=== PATIENT | male | born 1940 | race Caucasian/White ===

== ENCOUNTER 2018-09-18 22:58 | Observation (INO) ==
--- NOTE | 2018-09-18 23:15 | Emergency Department Note ---
Disposition Clinical Impression: Shoulder fracture, left Qualifiers: Encounter type: initial encounter Fracture type: closed Qualified Code(s): S42.92XA - Fracture of left shoulder girdle, part unspecified, initial encounter for closed fracture Fall Qualifiers: Encounter type: initial encounter Qualified Code(s): W19.XXXA - Unspecified fall, initial encounter Disposition: Admitted As Inpatient Condition: Fair Fall HPI - General Stated Complaint: Fall Lt Shoulder Time Seen by Provider: 09/18/18 23:00 Source: patient, EMS Nursing Notes Reviewed: Yes Vital Signs Reviewed: Yes - History of Present Illness HPI Narrative: 78-year-old male presents from home for evaluation of fall. This occurred just prior to arrival. Patient describes a mechanical fall. His left foot is bandaged; followed by Dr. Davis. He has been using a knee walker scooter. He says the corner of a throat round caught one of the wheels causing him to tip over striking his left shoulder and head. No loss of consciousness. He has pain at this time of his left before meals joint and left proximal humerus. He also notes left knee pain. No other concerns. Patient notes that he was looking forward to nearly being healed with his left foot surgery. He was at home with his who does not drive. He is unable to drive because of his left foot surgery. He is emotional concerns that he is again injured disrupting both he and his 's daily life. Antiplatelet: None Anticoagulant: None ROS: Positive: As above Negative: Fever, chills, nausea, vomiting, chest pains, palpitations, left upper extremity numbness or tingling, hip pain, back pain. - Related Data Home Medications Medication Instructions Recorded Confirmed Aspirin [Adult Aspirin Regimen] 81 mg PO DAILY 02/10/18 09/19/18 Lisinopril [Zestril] 40 mg PO DAILY 02/10/18 09/19/18 Metoprolol [Lopressor] 25 mg PO BID 02/10/18 09/19/18 Pantoprazole Sodium [Protonix] 20 mg PO DAILY 02/10/18 09/19/18 Simvastatin [Zocor] 40 mg PO HS 02/10/18 09/19/18 Cholecalciferol (Vitamin D3) 1 cap PO QWEEK 07/21/18 09/19/18 [Vitamin D3] Tramadol HCl [Ultram] 1 tab PO PRN PRN 07/21/18 07/21/18 Previous Rx's Medication Instructions Recorded HYDROcodone/Acet 5/325 mg [[place] 1 tab PO Q4H PRN 4 Days #24 tab 07/21/18 5-325 mg] Ondansetron ODT [Zofran ODT] 4 mg SL Q8HR PRN #15 tab.rapdis 07/21/18 Rivaroxaban [Xarelto] 10 mg PO DAILY #20 tablet 07/21/18 Allergies Allergy/AdvReac Type Severity Reaction Status Date / Time Iodinated Contrast- Oral and Allergy Hives Verified 07/20/18 15:30 IV Dye [Iodinated Contrast Media - IV Dye] ofloxacin [From Floxin] Allergy Rash Verified 07/20/18 15:31 fluconazole [From Diflucan] AdvReac Hives Verified 07/20/18 15:30 All systems ED: reviewed and negative except as stated. Review of Systems: As Per HPI Fall PMH - Past Medical History Medical history: Reports: cancer, hyperlipidemia, hypertension, osteoporosis Psychiatric history: Reports: no psych history - Social History Smoking Status: Never smoker Alcohol use: Reports: none Drug use: Reports: none Physical Exam Primary survey: Airway: Intact; patient is speaking in complete sentences and maintaining secretions. Breathing: No chest wall tenderness. Bilateral breath sounds equal. Circulation: Bilateral radial pulses 2/4. Right posterior tibial pulses 2/4, left posterior tibial pulse obscured by bulky bandaging of his left foot and leg. No hemorrhaging. Disability: GCS 15. Exposure: No abrasions, lacerations, ecchymosis, or hematomas on the patient's scalp or face, trunk, extremities. Secondary survey Vital Signs Reviewed General: Patient is alert, oriented, and in no acute distress. HEENT: No facial asymmetry. Head is normocephalic and atraumatic. PERRLA, EOMI. Nasal turbinates moist and pink without epistaxis. Oral mucosa moist. Dentition intact. Cardiovascular: Heart regular rate and rhythm without clicks, rubs, gallops, or murmurs. No JVD. PMI nondisplaced. Respiratory: Symmetric chest rise with good respiratory effort. Bilateral breath sounds are clear without wheezing, crackles, or rhonchi. Abdomen: Bowel sounds present normoactive x-4 quadrants. Abdomen is soft, nondistended, and nontender. No organomegaly noted. Musculoskeletal: Spontaneously moving all extremities. Pain to palpation of left acromioclavicular joint. Pain to palpation of left proximal humerus at the surgical neck with overlying soft tissue swelling. No midline spinous process tenderness of cervical, thoracic, lumbar spines. Neuro: Sensation light touch intact. Psych: Patient's affect is appropriate for situation. - General Limitations: no limitations General appearance: alert, in no apparent distress Course Course Narrative: Clinical concern for fracture of left proximal humerus. Will x-ray left shoulder, left elbow, left knee. Also concern about patient's emotional state given the burden of his left foot injury/surgery with the added emotional way of his left upper extremity injury. Patient is currently nonambulatory on his left foot. He now has limited use of his left upper extremity secondary to the shoulder x-ray showing nondisplaced fracture of the greater tuberosity of left humeral head. He is a primary caregiver for his . He has to intracisternal house, both of which require 3 steps to go up. He is concerned that, even of a squat is able to give him assistance getting into his home, he will be unable to exit his home to make a potential appointment this coming Thursday with orthopedics. Additionally, he is a fall risk because he now is unable to steady himself with his left upper extremity. Concerned that he may go home, further injure himself and or his . He is agreeable to admission. I discussed the patient with the admitting hospitalist, Dr. Hernandez. He is agreeable to accept the patient for continued evaluation monitoring. He will consult or so. We discussed in detail the patient's social situation and the need for likely home health and assistance at home. Elbow X-Ray 09/18/18 23:13 IMPRESSION: Nondisplaced fracture through the greater tuberosity of the left humeral head. No other significant finding. D/ / Matthew Garcia MD / Matthew Garcia MD Interpreting Provider: Matthew Garcia MD Knee X-Ray 09/18/18 23:13 IMPRESSION: No acute finding in the left knee. D/ / Matthew Garcia MD / Matthew Garcia MD Interpreting Provider: Matthew Garcia MD Shoulder X-Ray 09/18/18 23:13 IMPRESSION: Nondisplaced fracture through the greater tuberosity of the left humeral head. No other significant finding. D/ / Matthew Garcia MD / Matthew Garcia MD Interpreting Provider: Matthew Garcia MD Vital Signs Temperature 97.8 F 09/18/18 23:04 Pulse Rate 101 09/18/18 23:04 Respiratory Rate 16 09/18/18 23:04 Blood Pressure 165/85 09/18/18 23:04 O2 Sat by Pulse Oximetry 100 09/18/18 23:04 Temperature 98.4 F 09/19/18 12:11 Pulse Rate 82 09/19/18 12:11 Respiratory Rate 15 09/19/18 12:11 Blood Pressure 141/60 09/19/18 12:11 O2 Sat by Pulse Oximetry 96 09/19/18 12:11 Oxygen Delivery Oxygen Delivery Room Air Fall - Lab Data Result diagrams: 09/19/18 05:24 09/19/18 05:24 Attestation Statement - Attestation Attestation: I, Yamil Mcdaniel DO, examined this patient [id number] and my medical decision-making was reviewed with Dr. Igor Robles, Resident Physician. I agree with the documented findings, disposition and treatment plan as described except to the extent set forth below. Please see my progress notes for details.
--- NOTE | 2018-09-19 00:12 | Emergency Department Note ---
Disposition Clinical Impression: Shoulder fracture, left, Fall Disposition: Admitted As Inpatient Condition: Fair Forms: ED Satisfaction Letter Time of Disposition: 01:13 General Adult HPI - General Chief complaint: ED Extremity Injury, Upper Stated complaint: Fall Lt Shoulder Time Seen by Provider: 09/18/18 23:00 Source: patient, EMS Limitations: no limitations - History of Present Illness Pain Scale: 5 - Related Data Home Medications Medication Instructions Recorded Confirmed Aspirin [Adult Aspirin Regimen] 81 mg PO DAILY 02/10/18 07/21/18 Lisinopril [Zestril] 40 mg PO DAILY 02/10/18 07/21/18 Metoprolol [Lopressor] 25 mg PO BID 02/10/18 07/21/18 Pantoprazole Sodium [Protonix] 20 mg PO DAILY 02/10/18 07/21/18 Simvastatin [Zocor] 40 mg PO HS 02/10/18 07/21/18 Cholecalciferol (Vitamin D3) 1 cap PO QWEEK 07/21/18 07/21/18 [Vitamin D3] Tramadol HCl [Ultram] 1 tab PO PRN PRN 07/21/18 07/21/18 Previous Rx's Medication Instructions Recorded HYDROcodone/Acet 5/325 mg [[place] 1 tab PO Q4H PRN 4 Days #24 tab 07/21/18 5-325 mg] Ondansetron ODT [Zofran ODT] 4 mg SL Q8HR PRN #15 tab.rapdis 07/21/18 Rivaroxaban [Xarelto] 10 mg PO DAILY #20 tablet 07/21/18 Allergies Allergy/AdvReac Type Severity Reaction Status Date / Time Iodinated Contrast- Oral and Allergy Hives Verified 07/20/18 15:30 IV Dye [Iodinated Contrast Media - IV Dye] ofloxacin [From Floxin] Allergy Rash Verified 07/20/18 15:31 fluconazole [From Diflucan] AdvReac Hives Verified 07/20/18 15:30 Past Medical History - Past Medical History Medical history: Reports: cancer, hyperlipidemia, hypertension, osteoporosis Psychiatric history: Reports: no psych history - Social History Smoking Status: Never smoker Smokeless Tobacco Status: No Alcohol use: Reports: none Drug use: Reports: none Physical Exam - General Limitations: no limitations General appearance: alert, in no apparent distress Course Vital Signs Temperature 97.8 F 09/18/18 23:04 Pulse Rate 101 09/18/18 23:04 Respiratory Rate 16 09/18/18 23:04 Blood Pressure 165/85 09/18/18 23:04 O2 Sat by Pulse Oximetry 100 09/18/18 23:04 Temperature 97.8 F 09/18/18 23:04 Pulse Rate 101 09/18/18 23:04 Respiratory Rate 16 09/18/18 23:04 Blood Pressure 165/85 09/18/18 23:04 O2 Sat by Pulse Oximetry 100 09/18/18 23:04 Oxygen Delivery Oxygen Delivery Room Air Attestation Statement - Attestation Attestation: I, Yamil Mcdaniel DO, examined this patient [id number] and my medical decision-making was reviewed with Dr. Igor Robles, Resident Physician. I agree with the documented findings, disposition and treatment plan as described except to the extent set forth below. Please see my progress notes for details. 78-year-old male presents to the emergency room for evaluation of a mechanical fall. Patient has a wound on his left foot that is being treated by podiatry with. Patient is on a scooter at home secondary to this injury. He is going to his house on his scooter when the wheel got caught on a rug and twisted sideways. Patient lost his balance and fell to the left side hitting his left shoulder and arm. Denies any closed head injury. Denies any loss of consciousness. His main complaint is left shoulder pain and pain with movement of the left arm. He has no other trauma or injuries outside of pain up his knees. On presentation here patient is alert he is oriented he speaks in full sentences. Head is atraumatic. No signs of facial injury or trauma. Patient has no pain in the cervical thoracic or lumbar spine. Does have tenderness across the left shoulder girdle and into the left proximal humerus. No visible signs of injury to the left elbow or wrist. Right upper extremity is normal. Sensation and pulses are intact and symmetrical bilaterally. No visible signs of trauma to the pelvis abdominal wall. Patient has full range of motion of the hips knees and ankle. He does have an abrasion on the anterior aspect of the right dowling as well as on the anterior aspect of the left knee. Imaging the left knee will be completed secondary to discomfort with movement. There is no gross deformity or injury noted. Imaging of the left shoulder and forearm and humerus will be completed. No other imaging modalities required at this time. Patient is not currently on blood thinners. He did not lose consciousness. The description of the incident today as purely mechanical. We will continue monitor her symptomatic control is completed. The patient does have a shoulder fracture he may require admission and psychiatric social worker consult considering his is unable to drive and he is unable to use his left foot at this time. Disposition pending full workup and treatment course. See detailed documentation of the physical exam, medical intervention, medical decision- making and disposition in the resident physician's note.
[2018-09-19] MEDS ORDERED: *HR* HYDROcodone/Acet 5/325 mg TABLET PO ONE (01:22)
[2018-09-19] MEDS ORDERED: Naloxone 0.4 MG/ML INJ IVP PRN (02:59)
[2018-09-19] MEDS ORDERED: Acetaminophen 325 MG TABLET PO PRN (02:59)
[2018-09-19] MEDS ORDERED: traMADol 50 MG TABLET PO PRN (02:59)
--- NOTE | 2018-09-19 03:22 | Internal Med History&Physical ---
Date of Encounter: 09/19/18 Time of Encounter: 02:50 Internal Medicine - H&P: HPI Chief complaint: s/p fall; shoulder injury Admitted From: Emergency Dept Plans for Post Hospital Care: Home History of present illness: Mr. Chi is a 78 year old male who presents to the ER after he sustained a fall this evening. He is recovering from left ankle surgery and was scooting around his house and in the wheeled scooter when the scooter got caught up in the rug and he fell forward onto his left shoulder. He was brought in to the ER by a fellow anabaptism member as his does not drive. Workup in the ER revealed images which showed a humeral head fracture of the left shoulder. Given his limited mobility now with his left shoulder injury and left ankle surgery, he was admitted to the hospitalist service for pain control, orthopedic consultation, and therapy assessment. He is unable to care for himself and unsafe for discharge at this time. I saw and assessed patient in the ER and met with his and 2 daughters. He denies any syncope, lightheadedness, or dizziness. He and his family confirm this was a mechanical fall. Unfortunately, patient has of osteoporosis and has 2 subacute compression fractures in his spine limiting his mobility. Additionally, he has been limited recently due to his left ankle fracture/surgery. Furthermore, he has even much more limited mobility now due to his left shoulder injury/humeral head fracture. He denies any chest pain, palpitations, lightheaded, dizziness, or near syncopal symptoms. Past Med Surg Social Fam HX - Past Medical History Attestation: Yes The following information was validated with the patient. Source: patient, obtained from family Medical history: cancer, hyperlipidemia, hypertension, osteoporosis Additional medical history: Fx L3 Psychiatric history: no psych history - Past Surgical History Surgical History: orthopedic, other Additional surgical history: excision of skin cancer. cataracts implants. back surgery - Social History Smoking Status: Never smoker Smokeless Tobacco Status: No Alcohol use: none Drug use: none Current living situation: Home, With Family Activity Level: Uses cane/walker Recent Out of Country Travel Within the Last 8 Weeks: No - Family History Mother Living Status: Father Living Status: Internal Medicine - H&P: Meds Aspirin [Adult Aspirin Regimen] 81 mg PO DAILY 02/10/18 [History] Lisinopril [Zestril] 40 mg PO DAILY 02/10/18 [History] Metoprolol [Lopressor] 25 mg PO BID 02/10/18 [History] Pantoprazole Sodium [Protonix] 20 mg PO DAILY 02/10/18 [History] Simvastatin [Zocor] 40 mg PO HS 02/10/18 [History] Cholecalciferol (Vitamin D3) [Vitamin D3] 1 cap PO QWEEK 07/21/18 [History] HYDROcodone/Acet 5/325 mg [[place] 5-325 mg] 1 tab PO Q4H PRN 4 Days #24 tab 07/21/18 [Rx] Ondansetron ODT [Zofran ODT] 4 mg SL Q8HR PRN #15 tab.rapdis 07/21/18 [Rx] Rivaroxaban [Xarelto] 10 mg PO DAILY #20 tablet 07/21/18 [Rx] Tramadol HCl [Ultram] 1 tab PO PRN PRN 07/21/18 [History] Allergy/AdvReac Type Severity Reaction Status Date / Time Iodinated Contrast- Oral and Allergy Hives Verified 07/20/18 15:30 IV Dye [Iodinated Contrast Media - IV Dye] ofloxacin [From Floxin] Allergy Rash Verified 07/20/18 15:31 fluconazole [From Diflucan] AdvReac Hives Verified 07/20/18 15:30 - Constitutional Constitutional: no chills, no fever(s), no night sweats - EENT Eyes: no blurry vision, no change in vision Ears: no ear pain, no tinnitus Nose, mouth and throat: no nasal congestion, no sore throat - Cardiovascular Cardiovascular ROS IM: no chest pain, no dyspnea, no edema, no lightheadedness, no orthopnea, no paroxysmal nocturnal dyspnea, no syncope - Respiratory Respiratory: no cough, no chest congestion, no excessive phlegm production, no change in phlegm color - Gastrointestinal Gastrointestinal: no abdominal pain, no diarrhea, no hematemesis, no hematochezia, no melena, no vomiting - Genitourinary Genitourinary ROS male: no dysuria, no hematuria - Musculoskeletal Musculoskeletal ROS IM: arthralgias, back pain, limited range of motion - Integumentary Integumentary IM: no rash, no jaundice - Neurological Neurological ROS: no dizziness, no focal weakness, no frequent falls, no heada nael(s), no numbness - Psychiatric Psychiatric: no anxiety, no depression - Endocrine Endocrine IM: no polydipsia, no polyphagia, no polyuria - Allergic/Immunologic Allergic/Immunologic: no GI upset with certain foods - Constitutional Vitals: Temp Pulse Resp BP Pulse Ox 97.8 F 101 16 153/71 100 09/18/18 23:04 09/18/18 23:04 09/19/18 03:02 09/19/18 03:02 09/18/18 23:04 General appearance: Present: cooperative, A&O X 3, pleasant, no acute distress Exam: see below - Head Head exam: Present: atraumatic, normal inspection - Eye Eye exam: Present: EOMI, PERRL. Absent: scleral icterus Pupils: Present: normal accommodation - ENT ENT exam: Present: mucous membranes dry, normal exam, normal oropharynx - Neck Neck exam general surgery: Present: full ROM, supple. Absent: tenderness - Respiratory Respiratory exam: Present: CTAB. Absent: chest wall tenderness, rales, rhonchi, wheezes - Cardiovascular Cardiovascular exam: Present: distant heart sounds, RRR, +S1, +S2. Absent: diastolic murmur, systolic murmur - GI/Abdominal GI/Abdominal exam: Present: normal bowel sounds, soft. Absent: hepatomegaly, mass, splenomegaly - Extremities Exam Extremities exam: Present: tenderness (left shoulder), warm, radial pulses palpable and symmetrical. Absent: calf tenderness Additional comments: left shoulder in sling; left leg in splint - Back Exam Back exam: Present: normal inspection. Absent: CVA tenderness (L), CVA tenderness (R) - Neurological Exam Neurological exam: Present: alert, CN II-XII intact, oriented X3, no focal deficits - Psychiatric Psychiatric exam: Present: normal affect, normal mood - Skin Skin exam: Present: dry, intact, warm Internal Med - H&P Results - Impressions ITS Impressions Elbow X-Ray 09/18/18 23:13 IMPRESSION: Nondisplaced fracture through the greater tuberosity of the left humeral head. No other significant finding. D/ / Matthew Garcia MD / Matthew Garcia MD Interpreting Provider: Matthew Garcia MD Knee X-Ray 09/18/18 23:13 IMPRESSION: No acute finding in the left knee. D/ / Matthew Garcia MD / Matthew Garcia MD Interpreting Provider: Matthew Garcia MD Shoulder X-Ray 09/18/18 23:13 IMPRESSION: Nondisplaced fracture through the greater tuberosity of the left humeral head. No other significant finding. D/ / Matthew Garcia MD / Matthew Garcia MD Interpreting Provider: Matthew Garcia MD - Assessment and plan (1) Shoulder fracture, left Current Visit: Yes Status: Acute Assessment and plan: 1. Consult orthopedics. 2. Shoulder sling. 3. Pain control. 4. Consult PT/OT/ social security benefits interviewer for D/C planning/rehab needs. Qualifiers: Encounter type: initial encounter Fracture type: closed Qualified Code(s): S42.92XA - Fracture of left shoulder girdle, part unspecified, initial encounter for closed fracture (2) Fall Current Visit: Yes Status: Acute Assessment and plan: 1. As above. 2. Pain control and respective therapy consults. Qualifiers: Encounter type: initial encounter Qualified Code(s): W19.XXXA - Unspecified fall, initial encounter (3) DVT prophylaxis Current Visit: Yes Status: Acute Assessment and plan: 1. Heparin SQ.
[2018-09-19] MEDS: *HR* Heparin 5,000 UNIT/ML VIAL SQ SCH ×2 (05:55→17:09)
[2018-09-19 06:23] LABS: Basophils # 0.1 K/mcL (0.0-0.2); Basophils % 0.3 %; Eosinophils # 0.4 K/mcL (0.0-0.6); Eosinophils % 2.8 %; Hematocrit 37.3 % (37.5-50.1); Hemoglobin 12.2 g/dL (12.9-16.9); Immature Granulocytes % 0.4 % (0-4); Lymphocytes # 2.4 K/mcL (0.6-4.6); Lymphocytes % 15.9 %; Mean Corpuscular HGB Conc 32.7 g/dL (31.6-35.5); Mean Corpuscular Volume 88.6 fL (83.0-100.0); Mean Platelet Volume 10.1 fL (9.4-12.4); Monocytes # 1.3 K/mcL (0.0-1.3); Monocytes % 8.9 %; Neutrophils # 10.7 K/mcL (1.6-8.9); Platelet Count 258 K/mcL (140-400); Red Blood Count 4.21 M/mcL (4.19-5.50); Red Cell Distribution Width 14.5 % (11.5-14.5); Segmented Neutrophils % 71.7 %
[2018-09-19 06:27] LABS: INR 1.1; Prothrombin Time 12.4 Seconds (9.4-12.1)
[2018-09-19 06:30] LABS: Activated Partial Thrombo Time 27.7 Seconds (26.0-36.0)
[2018-09-19 06:43] LABS: Alanine Aminotransferase 9 Units/L (7-52); Albumin 3.7 g/dL (3.5-5.7); Albumin/Globulin Ratio 1.5 (1.1-2.2); Alkaline Phosphatase 85 Units/L (34-104); Aspartate Amino Transferase 13 Units/L (13-39); BUN/Creatinine Ratio 19 (6-26); Bilirubin,Total 0.5 mg/dL (0.3-1.0); Blood Urea Nitrogen 18 mg/dL (8-23); Calcium 9.5 mg/dL (8.6-10.3); Carbon Dioxide 21 mEq/L (23-29); Chloride 102 mEq/L (98-107); Globulin 2.5 g/dL (2.4-3.5); Glucose 138 mg/dL (70-105); Osmolality,Calculated 280 (280-300); Sodium 133 mEq/L (136-145); Total Protein 6.2 g/dL (6.4-8.9); eGFR For Non-African Americans > 60 (> 60)
[2018-09-19] MEDS ORDERED: NON-FORMULARY MEDICATION 1 EACH EACH (Pantoprazole Sodium [Protonix] 20 MG) PO SCH (11:00)
[2018-09-19] MEDS: Lisinopril 20 MG TABLET PO SCH (11:47)
[2018-09-19] MEDS ORDERED: Ondansetron 4 MG/2 ML VIAL IVP PRN (12:33)
--- NOTE | 2018-09-19 14:56 | Event Note ---
Date of Encounter: 09/19/18 Time of Encounter: 14:46 Mr. Chi is a 78 year old male who presents to the ER after he sustained a fall this evening. He is recovering from left ankle surgery and was scooting around his house and in the wheeled scooter when the scooter got caught up in the rug and he fell forward onto his left shoulder. He was brought in to the ER by a fellow restoration member as his does not drive. Workup in the ER revealed images which showed a humeral head fracture of the left shoulder. Given his limited mobility now with his left shoulder injury and left ankle surgery, he was admitted to the hospitalist service for pain control, orthopedic consultation, and therapy assessment. He is unable to care for himself and unsafe for discharge at this time patient was admitted for left shoulder fracture, and fall 1. left shoulder fracture, pain control with tramadol, but developed nausea, zofran add prn 2. osteoprosis 3.hypertension, restart home meds 4. Hyperlipidemia, on statin 5. recent left foot fx 6. DVT prophylasix on heaprin [place] pending Ortho consult, conuslt pT and oT
--- NOTE | 2018-09-19 14:59 | Orthopedic Consult Note ---
Date of Encounter: 09/19/18 Time of Encounter: 14:56 Assessment and Plan (1) Shoulder fracture, left Current Visit: Yes Status: Acute Nondisplaced fracture. Continue sling/shoulder immobilizer Follow-up with Sports Medicine in our office in 1 week's time Qualifiers: Encounter type: initial encounter Fracture type: closed Qualified Code(s): S42.92XA - Fracture of left shoulder girdle, part unspecified, initial encounter for closed fracture History of Present Illness Chief complaint: Left proximal humerus fracture HPI: Mr. Chi is a 78 year old male status post a fall. Patient is currently under the care Dr. Davis for a left ankle fracture. He fell down onto his left side injuring his left shoulder also states he banged his left knee. No lost consciousness. Past Med Surg Social Fam HX - Past Medical History Medical history: cancer, hyperlipidemia, hypertension, osteoporosis Additional medical history: Fx L3 Psychiatric history: no psych history - Past Surgical History Surgical History: orthopedic, other Additional surgical history: excision of skin cancer. cataracts implants. back surgery - Social History Smoking Status: Never smoker Smokeless Tobacco Status: No Alcohol use: none Drug use: none - Family History Mother Living Status: Hx Family Cardiac Disorders: Yes (HTN) Father Living Status: Hx Family Cancer: Yes (throat cancer) Medications and Allergies Aspirin [Adult Aspirin Regimen] 81 mg PO DAILY 02/10/18 [History] Lisinopril [Zestril] 40 mg PO DAILY 02/10/18 [History] Metoprolol [Lopressor] 25 mg PO BID 02/10/18 [History] Pantoprazole Sodium [Protonix] 20 mg PO DAILY 02/10/18 [History] Simvastatin [Zocor] 40 mg PO HS 02/10/18 [History] Cholecalciferol (Vitamin D3) [Vitamin D3] 1 cap PO QWEEK 07/21/18 [History] HYDROcodone/Acet 5/325 mg [[place] 5-325 mg] 1 tab PO Q4H PRN 4 Days #24 tab 07/21/18 [Rx] Ondansetron ODT [Zofran ODT] 4 mg SL Q8HR PRN #15 tab.rapdis 07/21/18 [Rx] Rivaroxaban [Xarelto] 10 mg PO DAILY #20 tablet 07/21/18 [Rx] Tramadol HCl [Ultram] 1 tab PO PRN PRN 07/21/18 [History] Allergy/AdvReac Type Severity Reaction Status Date / Time Iodinated Contrast- Oral and Allergy Hives Verified 07/20/18 15:30 IV Dye [Iodinated Contrast Media - IV Dye] ofloxacin [From Floxin] Allergy Rash Verified 07/20/18 15:31 fluconazole [From Diflucan] AdvReac Hives Verified 07/20/18 15:30 All Systems Reviewed: The remainder of the systems were reviewed and are negative Physical Exam - Constitutional Vitals: Temp Pulse Resp BP Pulse Ox 98.4 F 82 15 141/60 96 09/19/18 12:11 09/19/18 12:11 09/19/18 12:11 09/19/18 12:11 09/19/18 12:11 General appearance IM: A&O X 3, no acute distress Exam: Patient laying in hospital bed. He has on a left ankle plaster splint. Left upper extremity is in a shoulder immobilizer. He is tender at the lateral aspect of the shoulder. Sensation intact. He is neurovascularly intact dist ally in the hand without swelling. Left knee has mild abrasion to the patella with mild tenderness. Left ankle splint intact Results - Labs Result Diagrams: 09/19/18 05:24 09/19/18 05:24 Labs: Abnormal lab results WBC 14.9 K/mcL (4.3-11.1) H 09/19/18 05:24 Hgb 12.2 g/dL (12.9-16.9) L 09/19/18 05:24 Hct 37.3 % (37.5-50.1) L 09/19/18 05:24 Neutrophils # 10.7 K/mcL (1.6-8.9) H 09/19/18 05:24 PT 12.4 Seconds (9.4-12.1) H 09/19/18 05:24 Sodium 133 mEq/L (136-145) L 09/19/18 05:24 Carbon Dioxide 21 mEq/L (23-29) L 09/19/18 05:24 Glucose 138 mg/dL (70-105) H 09/19/18 05:24 Serum Total Protein 6.2 g/dL (6.4-8.9) L 09/19/18 05:24 H & H 09/19/18 Range/Units 05:24 Hgb 12.2 L (12.9-16.9) g/dL Hct 37.3 L (37.5-50.1) % All other labs normal. - Diagnostic results Elbow x-ray: image reviewed (Nondisplaced fracture proximal humerus involving the greater tuberosity) Knee x-ray: image reviewed (No fractures noted, no acute findings, positive osteoarthritis) Consult Discharge Plan - Plan Referrals: Yovany Martinez MD [Primary Care Provider] -
[2018-09-20] MEDS: *HR* Heparin 5,000 UNIT/ML VIAL SQ SCH (05:59)
[2018-09-20] MEDS ORDERED: Aspirin Enteric Coated 81 MG Tablet PO SCH (09:00)
[2018-09-20] MEDS: Lisinopril 20 MG TABLET PO SCH (09:10)
--- NOTE | 2018-09-20 10:58 | Physician Discharge Referral ---
Home Health/Hosp Referral Info Transfer to: Home Health Provider in Charge Post Discharge: PCP - Respiratory Orders Smoking Cessation: Smoking cessation has been advised. For more information, call the [place] Tobacco Quit Line at 2-746-HPCT-NOW. - Diet/Nutrition Diet/Nutrition Orders: Cardiac - Services Needed Following services are medically necessary services: Nursing, Home Health Aide, Physical Therapy (as per PT, no therapy on the left arm until after follow up in the sports medicine office.) - Transfer Medications Prescriptions: Acetaminophen [Tylenol] 650 mg PO Q6H PRN #120 tablet PRN Reason: Mild Pain/Fever Home Medications: Aspirin [Adult Aspirin Regimen] 81 mg PO DAILY 02/10/18 [History] Lisinopril [Zestril] 40 mg PO DAILY 02/10/18 [History] Metoprolol [Lopressor] 25 mg PO BID 02/10/18 [History] Pantoprazole Sodium [Protonix] 20 mg PO DAILY 02/10/18 [History] Simvastatin [Zocor] 40 mg PO HS 02/10/18 [History] Cholecalciferol (Vitamin D3) [Vitamin D3] 50,000 unit PO WE 07/21/18 [History] Acetaminophen [Tylenol] 650 mg PO Q6H PRN #120 tablet 09/20/18 [Rx] Allergies/Adverse Reactions: Allergy/AdvReac Type Severity Reaction Status Date / Time fluconazole [From Diflucan] Allergy Hives Verified 09/19/18 15:58 Iodinated Contrast- Oral and Allergy Hives Verified 09/19/18 15:58 IV Dye [Iodinated Contrast Media - IV Dye] ofloxacin [From Floxin] Allergy Rash Verified 09/19/18 15:58 Certification: Further, I certify that my clinical findings support that this patient is homebound (i.e. absences from home require considerable and taxing effort and are for medical reasons or pentecostalism services or infrequently or short duration when for other reasons) because: Homebound Reason: Patient requires assistance of a person or device to safely leave home Attestation: My signature below is to certify that this patient is under my care and that I, or nurse practitioner, or a physician's assistant professor of music working with me, has a [id number] encounter with this patient.
--- NOTE | 2018-09-20 11:01 | Discharge Summary ---
- NOTES TO OUTPATIENT PROVIDER Notes to Outpatient Provider: follow up with Dr. mehta for LLE, follow up with sport medicine in 1 week. Date of Encounter: 09/20/18 Time of Encounter: 10:59 - Discharge Diagnosis (1) Shoulder fracture, left Priority: Primary Status: Acute Qualifiers: Encounter type: initial encounter Fracture type: closed Qualified Code(s): S42.92XA - Fracture of left shoulder girdle, part unspecified, initial encounter for closed fracture (2) Fall Priority: Secondary Status: Acute Assessment and Plan: mechanical fall. Qualifiers: Encounter type: initial encounter Qualified Code(s): W19.XXXA - Unspecified fall, initial encounter (3) DVT prophylaxis Priority: Secondary Status: Acute Hospital course: "Mr. Chi is a 78 year old male who presents to the ER after he sustained a fall this evening. He is recovering from left ankle surgery and was scooting around his house and in the wheeled scooter when the scooter got caught up in the rug and he fell forward onto his left shoulder. He was brought in to the ER by a fellow buddhist member as his does not drive. Workup in the ER revealed images which showed a humeral head fracture of the left shoulder. Given his limited mobility now with his left shoulder injury and left ankle surgery, he was admitted to the hospitalist service for pain control, orthopedic consultation, and therapy assessment. Unfortunately, patient has of osteoporosis and has 2 subacute compression fractures in his spine limiting his mobility. Additionally, he has been limited recently due to his left ankle fracture/surgery. Furthermore, he has even much more limited mobility now due to his left grabiel ulder injury/humeral head fracture. He denies any chest pain, palpitations, lightheaded, dizziness, or near syncopal symptoms." patient presented with above presentation. orthopedics were consulted and recommended that the fracture is Nondisplaced fracture.Continue sling/shoulder immobilizer. Follow-up with Sports Medicine in our office in 1 week's time. he has had left Ankle fracture in early july and has completed Anticoagulation at that time. he understands that he will need close follow up with his brick tester and sport medicine. Pt/OT contacted and recommended POWER AND RECOVERY SHIFT ENGINEER, adn home PT. SW and CM consulted and prescription was provided for hospital bead along and POWER AND RECOVERY SHIFT ENGINEER, nursing and physical therapy was set up for patient. Discharge discussed with: patient - Time Spent with Patient Total time spent providing and/or coordinating discharge services: Less than 30 minutes - Discharge Medications Prescriptions: Acetaminophen [Tylenol] 650 mg PO Q6H PRN #120 tablet PRN Reason: Mild Pain/Fever Home Medications: Aspirin [Adult Aspirin Regimen] 81 mg PO DAILY 02/10/18 [History] Lisinopril [Zestril] 40 mg PO DAILY 02/10/18 [History] Metoprolol [Lopressor] 25 mg PO BID 02/10/18 [History] Pantoprazole Sodium [Protonix] 20 mg PO DAILY 02/10/18 [History] Simvastatin [Zocor] 40 mg PO HS 02/10/18 [History] Cholecalciferol (Vitamin D3) [Vitamin D3] 50,000 unit PO WE 07/21/18 [History] Acetaminophen [Tylenol] 650 mg PO Q6H PRN #120 tablet 09/20/18 [Rx] Allergies/Adverse Reactions: Allergy/AdvReac Type Severity Reaction Status Date / Time fluconazole [From Diflucan] Allergy Hives Verified 09/19/18 15:58 Iodinated Contrast- Oral and Allergy Hives Verified 09/19/18 15:58 IV Dye [Iodinated Contrast Media - IV Dye] ofloxacin [From Floxin] Allergy Rash Verified 09/19/18 15:58 Date of admission: 09/19/18 02:52 Primary care physician: Yovany Martinez MD Consults: 09/19/18 02:59 Consult to Orthopedic Surgery [CONS] Routine Consulting Provider: Ochoa Cantu Reason for Consult: huneral head fracture Call Completed: No 09/19/18 03:02 Consult to Occupational Therapy [CONS] Routine Comment: Evaluate, develop and implement POC Reason for Consult: humeral head fracture - NO SHOULDER MOTION Does patient have active BEDREST order?: No Is patient medically & hemodynamically stable?: No Patient assessed for mobility or mobilized this visit?: No Consult to Compressor Station Engineer Chief [CONS] Routine Reason for SW Consult: D/C planning 09/19/18 14:32 Consult to Physical Therapy [CONS] Routine Comment: Evaluate, develop and implement POC Reason for Consult: humeral head fracture; left ankle surgery - NO SHOULDER MOTION Does patient have active BEDREST order?: No Is patient medically & hemodynamically stable?: Yes Patient assessed for mobility or mobilized this visit?: No - Constitutional Vitals: Temp Pulse Resp BP Pulse Ox 98.1 F 76 16 131/53 95 09/20/18 07:10 09/20/18 07:10 09/20/18 07:10 09/20/18 07:10 09/20/18 07:10 General appearance: Present: cooperative, A&O X 3, pleasant, no acute distress Exam: General: Patient is alert, oriented, no acute distress, overweight Head: atraumatic, normocephalic, Eye: normal appearance, PERRL, no scleral icterus, no conjunctival injection ENT: mucous membranes moist, normal external ear exam Neck: normal inspection, trachea midline, full ROM, no carotid bruits Chest: normal inspection, symmetric chest rise Respiratory: Good respiratory effort. Bilateral breath sounds are clear without wheezing, crackles, or rhonchi. Cardiovascular: Regular rate and rhythm. s1 and s2 No clicks, rubs, gallops, or murmors. Abdomen: Bowel sounds present normoactive x-4 quadrants. Abdomen is soft, nondistended. no Epigastric tenderness. No guarding or rebound. No organomegaly noted, obese musculoskeletal: Crease range of motion in the left upper extremity secondary to fracture, left upper extremity is in a sling, left lower extremity in a cast. Moving right upper extremities. Skin: warm, dry, intact. Neuro: Alert and oriented x4. Sensation light touch intact. Cranial nerves 2- 12 is intact. No focal deficit - Patient Status Disposition: Home Health Service Condition: Fair Functional capacity at discharge: uses cane/walker Overall status at discharge: patient is progressing back to baseline - Discharge Instructions Follow Up With: Yovany Martinez MD [Primary Care Provider] - - Diet and Activity Activity: as per physical therapy Diet: advance to your usual diet
[2018-09-20 11:42] VITALS: BP 126/70
== END 2018-09-20 13:36 | disposition home health service (06) ==
LOC: 3NENU 22:58 → EMEROOARM 22:58 → SUATTDRO 09-19 02:52 → 3NENU 09-19 03:05
PROVIDERS: ADMIT Internal Medicine; ATTEND Hospitalist

== ENCOUNTER 2019-03-10 06:12 | Inpatient (IN) ==
[~2019-03-10 06:12] MED LIST: ceFAZolin 1,000 MG, Sodium Chloride IRRigation 1,000 ML IR ONE
[2019-03-10] MEDS ORDERED: CeFAZolin Syr 2,000MG/20 ML 2,000 MG/20 ML SYRINGE IVPB ONE (06:40)
[2019-03-10] MEDS ORDERED: *HR* FentaNYL (PF) 100 MCG/2 ML VIAL ONE (06:59)
[2019-03-10] MEDS ORDERED: *HR* Propofol 200 MG/20 ML VIAL IVP ONE (06:59)
[2019-03-10] MEDS ORDERED: *HR* Midazolam HCl 2 MG/2 ML VIAL ONE (06:59)
[2019-03-10] MEDS ORDERED: *HR* Remifentanil 1 MG VIAL IVP ONE (06:59)
[2019-03-10] MEDS ORDERED: Lidocaine -MPF 4% 5 ML AMPUL ONE (07:05)
--- NOTE | 2019-03-10 07:10 | Anesthesia Evaluation PreOp ---
Date of Encounter: 03/10/19 Time of Encounter: 07:07 - Past History Planned Operation: Left carotid endarterectomy Cardiac History: HTN, Hyperlipidemia Pulmonary History: Snore PROGRAM DEVELOPER History: Other (carotid stenosis) Other Medical History: Denies Any Significant HX Anesthesia History: No Prior Anesthetic Complications, Past Anesthesia (MOHS, L ankle ORIF) Alcohol Use: none Drug use: none Medications and Allergies Aspirin [Adult Aspirin Regimen] 81 mg PO DAILY 02/10/18 [History] Lisinopril [Zestril] 40 mg PO DAILY 02/10/18 [History] Pantoprazole Sodium [Protonix] 20 mg PO DAILY 02/10/18 [History] Simvastatin [Zocor] 40 mg PO HS 02/10/18 [History] Acetaminophen [Tylenol] 650 mg PO Q6H PRN #120 tablet 09/20/18 [Rx] Cholecalciferol (Vitamin D3) [Vitamin D] 2,000 unit PO DAILY 03/04/19 [History] Metoprolol [Lopressor] 25 mg PO QPM 03/04/19 [History] Metoprolol [Lopressor] 50 mg PO QAM 03/04/19 [History] Allergy/AdvReac Type Severity Reaction Status Date / Time fluconazole [From Diflucan] Allergy Hives Verified 09/19/18 15:58 Iodinated Contrast- Oral and Allergy Hives Verified 09/19/18 15:58 IV Dye [Iodinated Contrast Media - IV Dye] ofloxacin [From Floxin] Allergy Rash Verified 09/19/18 15:58 - Meds/Allergy Pre-op Review Medications Reviewed: Yes Allergies Reviewed: Yes Beta Blockers on Current Med List: Yes If Beta Blockers taken, Date/Time (Last Dose taken): am today Anesthesia Results - Labs Laboratory Tests 02/15/19 03/03/19 03/03/19 07:11 09:37 09:37 WBC Hgb Hct Plt Count PT 11.8 INR 1.0 APTT 28.3 Sodium 140 Potassium 4.3 Chloride 104 Carbon Dioxide 27 BUN 18 Creatinine 1.12 Glucose 175 H Est Mean Plasma Glucose 137 Hemoglobin A1c 6.4 H 03/03/19 09:37 WBC 6.8 Hgb 12.9 Hct 39.9 Plt Count 225 PT INR APTT Sodium Potassium Chloride Carbon Dioxide BUN Creatinine Glucose Est Mean Plasma Glucose Hemoglobin A1c - Imaging EKG: report reviewed ([facility]YC[facility] Electronically Signed On 5-25-2019 19:02:18 EDT by Jeanmarie Dyson) Additional studies: Stress Test 2018 negative for ischemia EF 70% Anesthesia Exam O2 Sat Height 1.68 m Height 1.68 m Weight 94.801 kg Weight 94.801 kg O2 Sat by Pulse Oximetry 98 Vital Signs Temp Pulse Resp BP Pulse Ox 98.6 F 62 18 158/74 98 03/10/19 06:37 03/10/19 06:37 03/10/19 06:37 03/10/19 06:37 03/10/19 06:37 Weight: 94kg - HEENT Pupil (Motor): Pupils equal, EOMI Mallampati: II Teeth: Edentulous (upper) Denture Type: Upper: Complete Oral Opening: Greater than 3 - PROGRAM DEVELOPER LOC: Oriented PROGRAM DEVELOPER Motor: Normal RUE, Normal LUE, Normal RLE, Normal LLE, Normal Face PROGRAM DEVELOPER Sensory: Normal: RUE, LUE, RLE, LLE, Face - Cardiac Rhythm: Regular - Pulmonary Breath Sounds: bilateral Clear Respiratory Effort: Symmetrical Anesthesia Assess/Plan ASA Score: 3 Level of consciousness: Cooperative Anesthetic Plan: General Monitoring Plan: Standard Monitors, A-Line Recovery Plan: PACU
[2019-03-10] MEDS ORDERED: Heparin 1,000 UNITS/500 mL 1,000 ML ONE (07:16)
[2019-03-10] MEDS ORDERED: Lidocaine -MPF 2% 2 ML VIAL ONE ×2 (07:16→10:45)
[2019-03-10] MEDS ORDERED: Ondansetron 4 MG/2 ML VIAL ONE ×2 (07:16→10:22)
[2019-03-10] MEDS ORDERED: Protamine Sulfate 50 MG/5 ML VIAL IVP ONE (07:16)
[2019-03-10] MEDS ORDERED: *HR* Atropine Sulfate 8 MG/20 ML VIAL IVP ONE (07:16)
[2019-03-10] MEDS ORDERED: *HR* Rocuronium Bromide 50 MG/5 ML VIAL ONE ×2 (07:16→08:59)
--- NOTE | 2019-03-10 07:17 | History & Physical Report ---
Date of Encounter: 03/10/19 Time of Encounter: 07:16 24 Hour HP Update - Instructions Instructions: If the History and Physical is less than 30 days old and was completed prior to A.M. admission and or procedure and has NOT been updated on calendar day of procedure please complete this update prior to performing procedure. - Update Patient reports changes in Medical Condition: No Changes in examination, assessment, or condition: No Changes in Medication: No Preop tests/diagnostics Reviewed: Yes Surgery Remains Indicated: Yes Consent for Planned Operative Procedure(s) Verified: Yes - Pre-Operative Checklist Preoperative Checklist Indicated: Yes Prophylactic Antibiotic Ordered: Yes Home Medications Include Beta Kevin: Yes Beta Kevin Taken Today (Day of Surgery): Yes Beta Kevin Taken Yesterday (Day Prior to Surgery): Yes Is VTE Prophylaxis Indicated?: Yes
[2019-03-10] MEDS ORDERED: Heparin 1,000 UNITS/500 mL 500 ML ONE (07:28)
[2019-03-10] MEDS: Ringers Solution, Lactated 1,000 ML IVC SCH ×2 (07:30→09:47)
[2019-03-10] MEDS ORDERED: *HR* OxyCODONE Immed Rel 5 MG TABLET PO PRN ×2 (08:18→11:39)
[2019-03-10] MEDS ORDERED: *HR* FentaNYL (PF) 100 MCG/2 ML VIAL IVP PRN (08:18)
[2019-03-10] MEDS ORDERED: Ondansetron 4 MG/2 ML VIAL IVP ONE (08:18)
[2019-03-10] MEDS ORDERED: Ringers Solution, Lactated 1,000 ML IVC SCH (08:30)
[2019-03-10] MEDS ORDERED: *HR* Heparin 5,000 UNIT/ML VIAL ONE (08:37)
[2019-03-10] MEDS ORDERED: Dexamethasone 4 MG/ML VIAL ONE (08:57)
[2019-03-10] MEDS ORDERED: Neostigmine Methylsulfate 3 MG/3 ML SYRINGE ONE (10:40)
--- NOTE | 2019-03-10 11:02 | Operative Note ---
Date of procedure: 03/10/19 Pre-op diagnosis: Bilateral carotid artery stenosis Post-op diagnosis: same Procedure: Left carotid endarterectomy with bovine pericardial patch angioplasty and use of 8-Fijian shunt. Complications: None Anesthesia: CHRISTY Surgeon: Fabián Clarke Was there an warehouse administrative assistant present: No Estimated blood loss (cc): 75 Specimen: 0 Condition: stable Disposition: PACU Procedure in Detail: History Mr. Chi is a 78-year-old white male who was found to have abnormal carotid artery duplex scan. He then went on to have an angiogram which demonstrated a high-grade lesion of at least 90% in the left internal carotid artery. The patient has intermediate level stenosis in the right carotid artery and a high- grade stenosis in the right external carotid artery. He now comes for surgery for the left carotid artery lesion. Procedure After informed consent was obtained the patient was taken to the operating room. Arterial line was placed. General endotracheal anesthesia was established. The left side of the neck was sterilely prepped and draped. A timeout protocol was observed. Oblique incision was then made on the left neck. Dissection was carried down to the carotid artery and the carotid bifurcation. A selective dis section was then made all the carotid vessels. Controls obtained selectively of the carotid vessels. 5000 units of heparin were administered intravenously. After a three-minute delay the vessels were clamped with the internal carotid artery clamped first. Using an 11 blade knife and Fang scissors the distal common carotid artery was opened and the arteriotomy was continued distally onto the internal carotid artery. An 8-Fijian shunt was then inserted atraumatically. Patency of the shunt was confirmed by the use of intraoperative Doppler. Evaluation of the plaque revealed a firm relatively homogenous plaque. There is no signs of recent hemorrhage in the wall. There is no thrombus in the lumen. Dissection was then begun all of the plaque at the distal aspect of the left common carotid artery. A dissection plane was established and this was then carried both proximally and distally. The plaque was divided at the common carotid artery level. The external carotid and superior thyroid artery were then selectively endarterectomized. The endarterectomy was then continued distally up on into the internal carotid artery. The endpoint of the internal was smooth. No tacking sutures were necessary. The bed of the vessel was then irrigated with heparinized saline. The area was meticulously inspected and any residual debris or loose fragments were removed. A bovine pericardial angioplasty was then performed of the carotid. This was sewn into position using 2 6-0 Prolene sutures. Leaving a small space open on the suture line the shunt was clamped divided and removed. The final few sutures were then placed. The internal carotid artery was allowed to backflush. This was then reclamped. The external and common carotid arteries were then opened. After a brief delay the internal was then reopened itself. Excellent pulsatile flow was achieved throughout the carotid system. This was confirmed both by Doppler evaluation and by palpation. The edges of the wound were then infiltrated with 0.5% Marcaine. The wound was irrigated with antibiotic containing solution. Hemostasis was achieved. The wound was then closed in layers using absorbable suture. No drains were placed. There were no intraoperative complications. The patient was extubated in the operating room and found to be neurologically intact. He was then transported from the operating room to the recovery room in stable condition.
--- NOTE | 2019-03-10 11:35 | Anesthesia Evaluation Post Op ---
Date of Encounter: 03/10/19 Time of Encounter: 11:35 - Vital Signs Vital Signs: Vital Signs/O2 Sat, Most Current Temp Pulse Resp BP Pulse Ox 96.8 F L 70 14 142/65 100 03/10/19 10:59 03/10/19 11:29 03/10/19 11:29 03/10/19 11:29 03/10/19 11:29 - Lungs Lungs: Clear Ascult./Percussion - Airway Airway: Non-obstructed - Cardiovascular Regular Rate - Mental Status Mental Status: Alert & Oriented, Answers Appropriately - Pain Pain Scale: 2 Pain Scale used: Numeric (1 - 10) - Nausea Vomiting Nausea Vomiting: Not Present - Hydration Hydration: Ice chips, Shen catheter - Discharge PostOp Status: Transfer Patient to floor
[2019-03-10] MEDS ORDERED: Ondansetron 4 MG/2 ML VIAL IVP PRN (11:39)
[2019-03-10] MEDS ORDERED: *HR* HYDROcodone/Acet 5/325 mg TABLET PO PRN (11:39)
[2019-03-10] MEDS ORDERED: Acetaminophen 325 MG TABLET PO PRN (11:39)
[2019-03-10] MEDS ORDERED: Naloxone 0.4 MG/ML INJ IVP PRN (11:39)
[2019-03-10] MEDS ORDERED: *HR* Labetalol 20 MG/4 ML SYRINGE IVP PRN (11:39)
[2019-03-10] MEDS ORDERED: *HR* Phenylephrine 10 MG/ML VIAL ONE (17:04)
[2019-03-11 02:24] LABS: Basophils % 0.1 %; Hematocrit 35.3 % (37.5-50.1); Hemoglobin 11.8 g/dL (12.9-16.9); Immature Granulocytes % 0.3 % (0-4); Lymphocytes # 1.2 K/mcL (0.6-4.6); Lymphocytes % 9.6 %; Mean Corpuscular HGB Conc 33.4 g/dL (31.6-35.5); Mean Corpuscular Hemoglobin 30.3 pg (28.0-33.3); Mean Corpuscular Volume 90.7 fL (83.0-100.0); Mean Platelet Volume 9.9 fL (9.4-12.4); Monocytes # 0.7 K/mcL (0.0-1.3); Monocytes % 5.8 %; Neutrophils # 10.2 K/mcL (1.6-8.9); Platelet Count 230 K/mcL (140-400); Red Blood Count 3.89 M/mcL (4.19-5.50); Red Cell Distribution Width 14.3 % (11.5-14.5); Segmented Neutrophils % 84.2 %
[2019-03-11 02:44] LABS: BUN/Creatinine Ratio 16 (6-26); Blood Urea Nitrogen 16 mg/dL (8-23); Calcium 9.2 mg/dL (8.6-10.3); Carbon Dioxide 25 mEq/L (23-29); Chloride 105 mEq/L (98-107); Glucose 168 mg/dL (70-105); Osmolality,Calculated 291 (280-300); Potassium 4.5 mEq/L (3.5-5.1); Sodium 138 mEq/L (136-145); eGFR For Non-African Americans > 60 (> 60)
[2019-03-11] MEDS ORDERED: Aspirin Enteric Coated 81 MG Tablet PO SCH (09:00)
[2019-03-11] MEDS ORDERED: Lisinopril 20 MG TABLET PO SCH (09:00)
[2019-03-11] MEDS ORDERED: Cholecalciferol (D-3) 1,000 UNIT TABLET PO SCH (09:00)
[2019-03-11 11:51] VITALS: BP 166/59
--- NOTE | 2019-03-11 13:21 | Discharge Summary ---
Orders not resulted at time of discharge: Pending orders 03/04/19 15:42 Red Blood Cells [BBK] Routine Date of Encounter: 03/11/19 Time of Encounter: 13:19 - Discharge Diagnosis (1) Bilateral carotid artery disease Priority: Primary Status: Acute Comments: Patient was found to have abnormal duplex scan and carotid physical exam. This was confirmed by angiography demonstrating a high-grade left internal carotid artery stenosis. Patient also has disease of the right carotid system. Patient was admitted for carotid endarterectomy. Qualifiers: Carotid artery disease type: stenosis Qualified Code(s): I65.23 - Occlusion and stenosis of bilateral carotid arteries (2) Osteoporosis Priority: Secondary Status: Chronic Comments: Patient with history of osteoporosis. Qualifiers: Osteoporosis type: unspecified Presence of current pathological fracture: unspecified Qualified Code(s): M81.0 - Age-related osteoporosis without current pathological fracture - Hospital Course Hospital course: Mr. Chi is a 78 year old male With critical left internal carotid artery stenosis and significant right carotid artery stenosis. Patient came to the operating room for left carotid endarterectomy. The patient had no periprocedural complications. He tolerated the procedure well. Postoperatively he was neurologically and hemodynamically intact. He was felt fit for discharge on the afternoon of postoperative day #1. Instructions were given to the patient regards to his diet and medications and wound care prior to discharge. - Time Spent with Patient Total time spent providing and/or coordinating discharge services: - Discharge Medications Prescriptions: No Action Simvastatin [Zocor] 40 mg PO HS Pantoprazole Sodium [Protonix] 20 mg PO DAILY Lisinopril [Zestril] 40 mg PO DAILY Aspirin [Adult Aspirin Regimen] 81 mg PO DAILY Acetaminophen [Tylenol] 650 mg PO Q6H PRN #120 tablet PRN Reason: Mild Pain/Fever Metoprolol [Lopressor] 50 mg PO QAM Metoprolol [Lopressor] 25 mg PO QPM Cholecalciferol (Vitamin D3) [Vitamin D] 2,000 unit PO DAILY Home Medications: Aspirin [Adult Aspirin Regimen] 81 mg PO DAILY 02/10/18 [History] Lisinopril [Zestril] 40 mg PO DAILY 02/10/18 [History] Pantoprazole Sodium [Protonix] 20 mg PO DAILY 02/10/18 [History] Simvastatin [Zocor] 40 mg PO HS 02/10/18 [History] Acetaminophen [Tylenol] 650 mg PO Q6H PRN #120 tablet 09/20/18 [Rx] Cholecalciferol (Vitamin D3) [Vitamin D] 2,000 unit PO DAILY 03/04/19 [History] Metoprolol [Lopressor] 25 mg PO QPM 03/04/19 [History] Metoprolol [Lopressor] 50 mg PO QAM 03/04/19 [History] Allergies/Adverse Reactions: Allergy/AdvReac Type Severity Reaction Status Date / Time fluconazole [From Diflucan] Allergy Hives Verified 09/19/18 15:58 Iodinated Contrast- Oral and Allergy Hives Verified 09/19/18 15:58 IV Dye [Iodinated Contrast Media - IV Dye] ofloxacin [From Floxin] Allergy Rash Verified 09/19/18 15:58 Date of admission: 03/10/19 11:40 Primary care physician: Yovany Martinez MD Consults: None Procedure(s) Performed: Left carotid endarterectomy with patch angioplasty Discharging clinician: Fabián Clarke Anticipated date of discharge: 03/11/19 Exam Vital Signs, Last 4 Hours Temp Pulse Resp BP Pulse Ox 03/11/19 11:49 98.6 F 55 18 166/59 93 General: Present: Conversant, No Apparent Distress, Well developed, Well nourished HEENT: Present: Atraumatic, Trachea midline Neck: Absent: JVD Cardiac: Present: Reg Rate and Rhythm Neuro: Present: No focal deficits noted, Cranial nerves grossly intact, Motor nerves grossly intact, Sensory nerves grossly intact Vascular: Present: Surgical incisions (Left neck incision is clean and dry.) Skin: Present: Other (Patient has ecchymosis in left neck region with some extension anteriorly to the right side of the neck. There is no pulsatile mass.) - Patient Status Disposition: Home, Self-Care Condition: Good Functional capacity at discharge: independent ambulation Overall status at discharge: patient is progressing back to baseline - Discharge Instructions Follow Up With: Yovany Martinez MD [Primary Care Provider] - 03/15/19 9:30 am Fabián Clarke MD [Partnered Physician] - 04/06/19 1:30 pm Additional Instructions: Keep surgical site dry for 5 days following surgery. Patient may sleep in supine or elevated position according to his personal comfort. Continue to use ice pack on neck for the next 48 hours at home. Resume usual home medications. No lifting greater than 10 pounds. No automobile driving. No manual labor. - Diet and Activity Activity: increase activity as tolerated Diet: low fat, low cholesterol
== END 2019-03-11 15:11 | disposition home or self-care (01) | DRG 39 ==
LOC: SAMDAY 06:12 → 2NNU 11:40
PROVIDERS: ADMIT Internal Medicine Nephrology; ATTEND Internal Medicine Nephrology

== ENCOUNTER 2021-12-11 19:04 | Inpatient (IN) ==
[2021-12-11] MEDS ORDERED: 0.9 % Sodium Chloride 1,000 ML IVC ONE (19:32)
[2021-12-11] MEDS ORDERED: Morphine Sulfate 2 MG/ML SYRINGE IVP ONE ×2 (19:32→23:45)
[2021-12-11] MEDS ORDERED: Ondansetron 4 MG/2 ML VIAL IVP ONE (19:32)
[2021-12-11 20:22] LABS: Basophils % 0.4 %; Eosinophils # 0.1 K/mcL (0.0-0.6); Eosinophils % 1.3 %; Hematocrit 41.4 % (37.5-50.1); Hemoglobin 14.1 g/dL (12.9-16.9); Immature Granulocytes % 0.3 % (0-4); Lymphocytes # 1.6 K/mcL (0.6-4.6); Lymphocytes % 16.9 %; Mean Corpuscular HGB Conc 34.1 g/dL (31.6-35.5); Mean Corpuscular Hemoglobin 31.1 pg (28.0-33.3); Mean Corpuscular Volume 91.2 fL (83.0-100.0); Mean Platelet Volume 10.1 fL (9.4-12.4); Monocytes # 0.8 K/mcL (0.0-1.3); Monocytes % 8.3 %; Neutrophils # 6.9 K/mcL (1.6-8.9); Platelet Count 240 K/mcL (140-400); Red Blood Count 4.54 M/mcL (4.19-5.50); Segmented Neutrophils % 72.8 %; White Blood Count 9.4 K/mcL (4.3-11.1)
[2021-12-11 20:37] LABS: Alanine Aminotransferase 275 Units/L (7-52); Albumin 4.2 g/dL (3.5-5.7); Albumin/Globulin Ratio 1.3 (1.1-2.2); Alkaline Phosphatase 289 Units/L (34-104); Aspartate Amino Transferase 234 Units/L (13-39); BUN/Creatinine Ratio 16 (6-26); Bilirubin,Direct 1.9 mg/dL (0.0-0.2); Bilirubin,Total 3.9 mg/dL (0.3-1.0); Blood Urea Nitrogen 19 mg/dL (8-23); Calcium 9.6 mg/dL (8.6-10.3); Carbon Dioxide 26 mEq/L (23-29); Chloride 101 mEq/L (98-107); Globulin 3.2 g/dL (2.4-3.5); Glucose 136 mg/dL (70-105); INR 1.2; Lipase 16 Units/L (11-82); Osmolality,Calculated 286 (280-300); Potassium 4.1 mEq/L (3.5-5.1); Prothrombin Time 13.1 Seconds (9.4-12.1); Sodium 136 mEq/L (136-145); Total Protein 7.4 g/dL (6.4-8.9); eGFR For African Americans > 60 (> 60); eGFR For Non-African Americans 60 (> 60)
[2021-12-11 20:39] LABS: Activated Partial Thrombo Time 29.2 Seconds (26.0-36.0)
[2021-12-11 22:33] LABS: Amorphous Sediment,Urine Few per hpf (None-Few); Bacteria,Urine Few per hpf (None-Few); Bilirubin,Urine Negative (Negative); Blood,Urine Negative (Negative); Clarity,Urine Turbid (Clear); Color,Urine Yellow (Yellow); Glucose,Urine (UA) Normal (Normal); Ketones,Urine 10 mg/dL (Negative); Leukocyte Esterase,Urine Negative (Negative); Mucus,Urine Few per lpf (None-Few); Nitrite,Urine Negative (Negative); PH,Urine 5.5 pH Units (5.0-8.0); Protein,Urine Trace mg/dL (Neg-Trace); RBC,Urine 0-3 per hpf (0-3); Specific Gravity,Urine 1.023 (1.010-1.025)
[2021-12-12] MEDS ORDERED: Naloxone 0.4 MG/ML INJ IVP PRN
[2021-12-12] MEDS ORDERED: *HR* HYDROcodone/Acet 5/325 mg TABLET PO PRN
[2021-12-12] MEDS ORDERED: Melatonin 3 MG TABLET PO PRN
[2021-12-12] MEDS ORDERED: Acetaminophen 325 MG TABLET PO PRN
[2021-12-12] MEDS ORDERED: *HR* Promethazine 25 MG/ML VIAL IM PRN
[2021-12-12] MEDS: Ringers Solution, Lactated 1,000 ML IVC SCH ×2 (01:16→20:57)
[2021-12-12 03:36] LABS: Basophils % 0.4 %; Eosinophils # 0.1 K/mcL (0.0-0.6); Hematocrit 38.2 % (37.5-50.1); Hemoglobin 12.9 g/dL (12.9-16.9); Immature Granulocytes % 0.5 % (0-4); Lymphocytes # 1.4 K/mcL (0.6-4.6); Mean Corpuscular HGB Conc 33.8 g/dL (31.6-35.5); Mean Corpuscular Hemoglobin 31.2 pg (28.0-33.3); Mean Corpuscular Volume 92.3 fL (83.0-100.0); Mean Platelet Volume 10.1 fL (9.4-12.4); Monocytes % 9.6 %; Neutrophils # 7.5 K/mcL (1.6-8.9); Platelet Count 212 K/mcL (140-400); Red Blood Count 4.14 M/mcL (4.19-5.50); Red Cell Distribution Width 14.2 % (11.5-14.5); Segmented Neutrophils % 74.5 %
[2021-12-12 03:43] LABS: INR 1.1; Prothrombin Time 12.7 Seconds (9.4-12.1)
[2021-12-12 03:46] LABS: Alanine Aminotransferase 275 Units/L (7-52); Albumin 3.6 g/dL (3.5-5.7); Albumin/Globulin Ratio 1.2 (1.1-2.2); Alkaline Phosphatase 253 Units/L (34-104); Aspartate Amino Transferase 249 Units/L (13-39); BUN/Creatinine Ratio 16 (6-26); Bilirubin,Total 4.1 mg/dL (0.3-1.0); Blood Urea Nitrogen 17 mg/dL (8-23); Carbon Dioxide 26 mEq/L (23-29); Chloride 102 mEq/L (98-107); Globulin 2.9 g/dL (2.4-3.5); Glucose 122 mg/dL (70-105); Magnesium 2.1 mg/dL (1.6-2.6); Osmolality,Calculated 287 (280-300); Potassium 4.5 mEq/L (3.5-5.1); Sodium 137 mEq/L (136-145); Total Protein 6.5 g/dL (6.4-8.9); eGFR For African Americans > 60 (> 60); eGFR For Non-African Americans > 60 (> 60)
[2021-12-12] MEDS: *HR* Heparin 5,000 UNIT/ML VIAL SQ SCH ×3 (04:55→21:10)
[2021-12-12] MEDS: Aspirin Enteric Coated 81 MG Tablet PO SCH (10:43)
[2021-12-12] MEDS ORDERED: Ondansetron 4 MG/2 ML VIAL IVP PRN ×2 (13:01)
[2021-12-12] MEDS ORDERED: *HR* OxyCODONE Immed Rel 5 MG TABLET PO PRN (13:01)
[2021-12-12] MEDS ORDERED: *HR* HYDROmorphone PF 0.5 MG/0.5 ML SYRINGE IVP PRN (13:01)
[2021-12-12] MEDS ORDERED: Promethazine 6.25 MG in Water for inj. (sterile) 20 ML IVPB PRN (13:01)
[2021-12-12] MEDS ORDERED: Ondansetron 4 MG/2 ML VIAL ONE (13:20)
[2021-12-12] MEDS ORDERED: Lidocaine HCL 4 ML Topical Solution (Laryng-O-Jet Kit Sterile Pak) TP ONE (13:20)
[2021-12-12] MEDS ORDERED: *HR* Succinylcholine 200 MG/10 ML VIAL IVP ONE (13:20)
[2021-12-12] MEDS ORDERED: *HR* Rocuronium Bromide 50 MG/5 ML VIAL ONE (13:20)
[2021-12-12] MEDS ORDERED: Lidocaine -MPF 2% 5 ML VIAL ONE (13:20)
[2021-12-12] MEDS ORDERED: *HR* FentaNYL (PF) 100 MCG/2 ML VIAL ONE (13:30)
[2021-12-12] MEDS: lisinopriL 20 MG TABLET PO SCH (17:52)
[2021-12-13] MEDS: *HR* Heparin 5,000 UNIT/ML VIAL SQ SCH ×3 (05:41→21:48)
[2021-12-13 05:56] LABS: Basophils % 0.1 %; Eosinophils % 0.1 %; Hematocrit 38.5 % (37.5-50.1); Hemoglobin 12.6 g/dL (12.9-16.9); Immature Granulocytes % 0.5 % (0-4); Lymphocytes # 1.6 K/mcL (0.6-4.6); Lymphocytes % 18.3 %; Mean Corpuscular HGB Conc 32.7 g/dL (31.6-35.5); Mean Corpuscular Hemoglobin 30.1 pg (28.0-33.3); Mean Corpuscular Volume 91.9 fL (83.0-100.0); Mean Platelet Volume 10.3 fL (9.4-12.4); Monocytes # 0.7 K/mcL (0.0-1.3); Monocytes % 8.1 %; Neutrophils # 6.2 K/mcL (1.6-8.9); Platelet Count 246 K/mcL (140-400); Red Blood Count 4.19 M/mcL (4.19-5.50); Red Cell Distribution Width 14.4 % (11.5-14.5); Segmented Neutrophils % 72.9 %; White Blood Count 8.5 K/mcL (4.3-11.1)
[2021-12-13 06:16] LABS: BUN/Creatinine Ratio 17 (6-26); Blood Urea Nitrogen 17 mg/dL (8-23); Calcium 9.1 mg/dL (8.6-10.3); Carbon Dioxide 25 mEq/L (23-29); Chloride 102 mEq/L (98-107); Glucose 115 mg/dL (70-105); Osmolality,Calculated 280 (280-300); Potassium 4.1 mEq/L (3.5-5.1); Sodium 134 mEq/L (136-145); eGFR For African Americans > 60 (> 60); eGFR For Non-African Americans > 60 (> 60)
[2021-12-13] MEDS ORDERED: Aspirin Enteric Coated 81 MG Tablet PO SCH (09:00)
[2021-12-13] MEDS: lisinopriL 20 MG TABLET PO SCH (09:04)
[2021-12-13] MEDS: Aspirin Enteric Coated 81 MG Tablet PO SCH (09:05)
[2021-12-13 09:49] LABS: Alanine Aminotransferase 271 Units/L (7-52); Albumin 3.6 g/dL (3.5-5.7); Albumin/Globulin Ratio 1.3 (1.1-2.2); Alkaline Phosphatase 249 Units/L (34-104); Aspartate Amino Transferase 165 Units/L (13-39); Bilirubin,Direct 0.7 mg/dL (0.0-0.2); Bilirubin,Indirect 1.7 mg/dL (0.0-1.0); Bilirubin,Total 2.4 mg/dL (0.3-1.0); Globulin 2.7 g/dL (2.4-3.5); Total Protein 6.3 g/dL (6.4-8.9)
[2021-12-13] MEDS ORDERED: Ringers Solution, Lactated 1,000 ML IVC SCH (13:15)
[2021-12-13] MEDS ORDERED: cefOXitin 1,000 MG in 0.9 % Sodium Chloride Mini Bag 100 ML IVPB ONE (13:15)
[2021-12-13] MEDS ORDERED: *HR* Propofol 200 MG/20 ML VIAL IVP ONE (13:23)
[2021-12-13] MEDS ORDERED: Ondansetron 4 MG/2 ML VIAL ONE (13:23)
[2021-12-13] MEDS ORDERED: *HR* Rocuronium Bromide 50 MG/5 ML VIAL ONE ×2 (13:23→15:17)
[2021-12-13] MEDS ORDERED: *HR* FentaNYL (PF) 100 MCG/2 ML VIAL ONE (13:23)
[2021-12-13] MEDS ORDERED: Lidocaine -MPF 4% 5 ML AMPUL ONE (13:23)
[2021-12-13] MEDS ORDERED: Lidocaine -MPF 2% 5 ML VIAL ONE (13:23)
[2021-12-13] MEDS ORDERED: Albuterol 2.5 MG/3 ML NEBULIZER IH PRN ×2 (13:37→18:17)
[2021-12-13] MEDS ORDERED: Naloxone 0.4 MG/ML INJ IVP PRN ×3 (13:37→18:17)
[2021-12-13] MEDS ORDERED: Ondansetron 4 MG/2 ML VIAL IVP PRN ×3 (13:37→18:17)
[2021-12-13] MEDS ORDERED: Nitroglycerin 0.4 MG TAB.SUBL SL PRN ×2 (13:37→18:17)
[2021-12-13] MEDS ORDERED: *HR* HYDROmorphone (PF) 1 MG/ML SYRINGE IVP PRN ×2 (13:37→17:45)
[2021-12-13] MEDS ORDERED: *HR* FentaNYL (PF) 100 MCG/2 ML VIAL IVP PRN ×2 (13:37→18:17)
[2021-12-13] MEDS ORDERED: *HR* Metoprolol 5 MG/5 ML VIAL IVP PRN ×2 (13:38→18:17)
[2021-12-13] MEDS ORDERED: Isovue-300 50ML VIAL ONE (13:55)
[2021-12-13] MEDS ORDERED: Bupivacaine-MPF 0.25% 10 ML VIAL ONE (14:36)
[2021-12-13] MEDS ORDERED: Lidocaine/EPI 1:100k 1% 30 ML VIAL ONE (14:36)
[2021-12-13] MEDS ORDERED: CefOXitin 2,000 MG VIAL ONE (14:46)
[2021-12-13] MEDS ORDERED: Acetaminophen IV 1,000 MG/100 ML BAG IVPB ONE (15:11)
[2021-12-13] MEDS ORDERED: *HR* HYDROMORPHONE 2 MG/ML VIAL ONE (15:14)
[2021-12-13] MEDS ORDERED: Sugammadex Sodium 200 MG/2 ML VIAL IV ONE (16:26)
[2021-12-13] MEDS ORDERED: Ketorolac 30 MG/ML VIAL IVP ONE (17:25)
[2021-12-13] MEDS ORDERED: *HR* HYDROmorphone PF 0.5 MG/0.5 ML SYRINGE IVP PRN (17:25)
[2021-12-13] MEDS ORDERED: Acetaminophen 325 MG TABLET PO PRN (18:17)
[2021-12-13] MEDS ORDERED: *HR* HYDROcodone/Acet 5/325 mg TABLET PO PRN (18:17)
[2021-12-13] MEDS ORDERED: *HR* Promethazine 25 MG/ML VIAL IM PRN (18:17)
[2021-12-13] MEDS ORDERED: Melatonin 3 MG TABLET PO PRN (18:17)
[2021-12-13] MEDS: Ringers Solution, Lactated 1,000 ML IVC SCH (20:21)
[2021-12-14 05:45] LABS: Basophils % 0.1 %; Hematocrit 37.2 % (37.5-50.1); Immature Granulocytes % 0.4 % (0-4); Lymphocytes # 1.4 K/mcL (0.6-4.6); Lymphocytes % 11.4 %; Mean Corpuscular HGB Conc 32.3 g/dL (31.6-35.5); Mean Corpuscular Hemoglobin 29.9 pg (28.0-33.3); Mean Corpuscular Volume 92.8 fL (83.0-100.0); Monocytes % 7.6 %; Neutrophils # 10.1 K/mcL (1.6-8.9); Platelet Count 244 K/mcL (140-400); Red Blood Count 4.01 M/mcL (4.19-5.50); Red Cell Distribution Width 14.9 % (11.5-14.5); Segmented Neutrophils % 80.5 %; White Blood Count 12.6 K/mcL (4.3-11.1)
[2021-12-14] MEDS: Ringers Solution, Lactated 1,000 ML IVC SCH (05:49)
[2021-12-14] MEDS: *HR* Heparin 5,000 UNIT/ML VIAL SQ SCH (05:50)
[2021-12-14 06:08] LABS: Alanine Aminotransferase 285 Units/L (7-52); Albumin 3.5 g/dL (3.5-5.7); Albumin/Globulin Ratio 1.3 (1.1-2.2); Alkaline Phosphatase 205 Units/L (34-104); Aspartate Amino Transferase 163 Units/L (13-39); BUN/Creatinine Ratio 20 (6-26); Bilirubin,Total 1.3 mg/dL (0.3-1.0); Blood Urea Nitrogen 20 mg/dL (8-23); Carbon Dioxide 26 mEq/L (23-29); Chloride 103 mEq/L (98-107); Glucose 110 mg/dL (70-105); Osmolality,Calculated 283 (280-300); Potassium 4.5 mEq/L (3.5-5.1); Sodium 135 mEq/L (136-145); Total Protein 6.1 g/dL (6.4-8.9); eGFR For African Americans > 60 (> 60); eGFR For Non-African Americans > 60 (> 60)
[2021-12-14 06:09] LABS: Globulin 2.6 g/dL (2.4-3.5)
[2021-12-14] MEDS ORDERED: lisinopriL 20 MG TABLET PO SCH (09:00)
[2021-12-14] MEDS ORDERED: Aspirin Enteric Coated 81 MG Tablet PO SCH (09:00)
[2021-12-14 13:24] VITALS: BP 147/61; PULSE 73; TEMP 98.1; O2SAT 95
== END 2021-12-14 15:20 | disposition home or self-care (01) | DRG 419 ==
LOC: 3ANU 19:04 → EMEROOARM 19:04 → SUATTDRO 12-12 00:11 → 3ANU 12-12 00:55
PROVIDERS: ADMIT Internal Medicine; ATTEND Registered Nurse